=== PATIENT | female | born 1935 | race Caucasian/White ===

== ENCOUNTER → 2016-09-18 | Outpatient (CLI) | payer MEDICARE, MEDICAID ==
[~2016-09-18] MED LIST: DIGO0.12 PO; FURO20 PO; GLIM2TAB PO; MILK175C5 PO; OMEG1000 PO; PROT40TA PO; SITA100T; WARF6 PO; WARF7.5 PO; [UNRECOGNIZED DRUG - OTHER] PO
[2016-09-18 11:36] LABS: INTERNATIONAL NORMALIZED RATIO 2.3 RATIO; PROTHROMBIN TIME - PATIENT 26.3 SEC (9.8-11.6)
== END ==
LOC: CLAB 10:14
PROVIDERS: ATTEND Internal Medicine Cardiovascular Disease
DX: I48.92 Unspecified atrial flutter (principal)
CPT/HCPCS: 36415; 85610

== ENCOUNTER 2017-05-16 12:08 | Emergency (ER) | payer OTHER, MEDICARE, MEDICAID ==
[~2017-05-16] VITALS: Ht 157.5 cm; Wt 50.0 kg
[2017-05-16 12:16] VITALS: BP 153/71; PULSE 98; RESP 17; O2SAT 95
[2017-05-16] MEDS ORDERED: FURO20TA PO (12:24)
[2017-05-16] MEDS ORDERED: WARF-60 PO (12:24)
[2017-05-16] MEDS ORDERED: SPIR25TA PO (12:24)
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
[2017-05-16] MEDS ORDERED: NORC5TAB PO (14:50)
[2017-05-16] MEDS ORDERED: ACETAMINOPHEN/HYDROcodone 325 MG/5 MG TAB PO ONE ×2 (15:00)
[2017-05-16 18:07] VITALS: BP 145/70; PULSE 80; RESP 16; O2SAT 96
--- NOTE | 2017-05-18 11:36 | EKG ---
Date Performed: 05/16/2017 Time Performed: 12:31:34 PTAGE: 82 years EKG: ATRIAL FIBRILLATION WITH ABERRANT CONDUCTION OR VENTRICULAR PREMATURE COMPLEXES MODERATE ST DEPRESSION ABNORMAL ECG PREVIOUS TRACING : 08/01/2015 00.00 Now consider anterolateral ischemia DOCTOR: Bolivar Collado Interpretating Date/Time 05/18/2017 11:35:37
== END 2017-05-16 18:06 | disposition home or self-care (01) ==
LOC: NEPE 12:08
DX: R07.89 Other chest pain (principal); M54.6 Pain in thoracic spine; I48.91 Unspecified atrial fibrillation; I25.10 Atherosclerotic heart disease of native coronary artery without angina pectoris; E11.9 Type 2 diabetes mellitus without complications; K21.9 Gastro-esophageal reflux disease without esophagitis; I10 Essential (primary) hypertension; V43.52XA Car driver injured in collision with other type car in traffic accident, initial encounter; Z86.73 Personal history of transient ischemic attack (TIA), and cerebral infarction without residual deficits
CPT/HCPCS: 70450; 71010; 71250; 72020; 72125; 93005

== ENCOUNTER 2017-05-23 14:25 | Emergency (ER) | payer OTHER, MEDICARE, MEDICAID ==
[~2017-05-23] VITALS: Ht 160 cm; Wt 50.0 kg
[~2017-05-23 14:25] MED LIST changes: -DIGO0.12 PO; -FURO20 PO; +FURO20TA PO; -GLIM2TAB PO; -MILK175C5 PO; +NORC5TAB PO; -OMEG1000 PO; -PROT40TA PO; -SITA100T; +SPIR25TA PO; +WARF-60 PO; -WARF6 PO; -WARF7.5 PO; -[UNRECOGNIZED DRUG - OTHER] PO
[2017-05-23 14:27] VITALS: BP 171/72; PULSE 58; RESP 12; TEMP 98.4; O2SAT 99
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
[2017-05-23] MEDS ORDERED: ACETAMINOPHEN/HYDROcodone 325 MG/5 MG TAB PO ONE (15:00)
[2017-05-23] MEDS ORDERED: NORC5TAB PO (15:05)
== END 2017-05-23 19:06 | disposition home or self-care (01) ==
LOC: NEPD 14:25
DX: R07.89 Other chest pain (principal); D50.9 Iron deficiency anemia, unspecified; I48.91 Unspecified atrial fibrillation; E11.9 Type 2 diabetes mellitus without complications; I10 Essential (primary) hypertension; I25.10 Atherosclerotic heart disease of native coronary artery without angina pectoris; K21.9 Gastro-esophageal reflux disease without esophagitis; I25.2 Old myocardial infarction; Z86.73 Personal history of transient ischemic attack (TIA), and cerebral infarction without residual deficits
CPT/HCPCS: 99283

== ENCOUNTER → 2017-08-15 | Outpatient (CLI) | payer MEDICARE, MEDICAID ==
[2017-08-15 12:19] LABS: INTERNATIONAL NORMALIZED RATIO 1.9 RATIO; PROTHROMBIN TIME - PATIENT 18.8 SEC (9.8-11.6)
== END ==
LOC: CLAB 11:42
PROVIDERS: ATTEND Physician Assistant Medical
DX: I48.92 Unspecified atrial flutter (principal)
CPT/HCPCS: 36415; 85610

== ENCOUNTER → 2017-09-25 | Outpatient (CLI) | payer MEDICARE, MEDICAID ==
[2017-09-25 08:54] LABS: INTERNATIONAL NORMALIZED RATIO 1.8 RATIO; PROTHROMBIN TIME - PATIENT 18.1 SEC (9.8-11.6)
== END ==
LOC: CLAB 08:30
PROVIDERS: ATTEND Physician Assistant Medical
DX: I48.92 Unspecified atrial flutter (principal)
CPT/HCPCS: 36415; 85610

== ENCOUNTER → 2017-10-29 | Outpatient (CLI) | payer MEDICARE, MEDICAID ==
[2017-10-29 14:31] LABS: INTERNATIONAL NORMALIZED RATIO 1.5 RATIO; PROTHROMBIN TIME - PATIENT 15.1 SEC (9.8-11.6)
== END ==
LOC: CLAB 14:09
PROVIDERS: ATTEND Nurse Practitioner Family
DX: I48.92 Unspecified atrial flutter (principal)
CPT/HCPCS: 36415; 85610